=== PATIENT | female | born 1965 | race Caucasian/White ===

== ENCOUNTER 2018-01-21 07:19 | Emergency (ER) | payer OTHER ==
[~2018-01-21] VITALS: Ht 157.5 cm; Wt 65.8 kg
[~2018-01-21 07:19] MED LIST: ATIVAN 0.5MG T0.5 MG PO; PRILOSEC20 MG PO; TRAMADOL50 MG PO; ZOFRAN 4 MG TABL4 MG PO
--- NOTE | 2018-01-21 10:45 | RADIOLOGY REPORT ---
EXAMINATION: XR PORTABLE CHEST CLINICAL INFORMATION: Chest pain and shortness of breath. Presumptive diagnosis of pneumonia and CHF. COMPARISON: Chest x-ray dated 03/18/2011. CT scan of the abdomen and pelvis dated 03/07/2014. TECHNIQUE: Portable AP semierect view of the chest was obtained. FINDINGS: The cardiomediastinal silhouette is within normal limits in size. Lungs bilaterally are symmetrically expanded and clear. No focal consolidation, effusion or pneumothorax is seen. Bony structures are unremarkable. IMPRESSION: No acute cardiopulmonary process seen.
[2018-01-21 11:02] LABS: ABSOLUTE BASOPHIL COUNT 0 /CUMM (0.0-0.2); ABSOLUTE EOSINOPHIL COUNT 0.1 /CUMM (0.0-0.7); ABSOLUTE GRANULOCYTE CT 4.3 /CUMM (1.4-6.5); ABSOLUTE LYMPH COUNT 1.6 /CUMM (1.2-3.4); ABSOLUTE MONOCYTE COUNT 0.3 /CUMM (0.10-0.60); BASOPHIL % 0.7 % (0.0-2.0); EOSINOPHIL % 1.4 % (0-5); GRANULOCYTE % 67.8 % (42.2-75.2); HEMATOCRIT 46.2 % (37-47); MEAN CORPUSCULAR HGB 30.8 PG (27.0-31.0); MEAN CORPUSCULAR HGB CONC 33.6 G/DL (33.0-37.0); MEAN CORPUSCULAR VOLUME 91.7 FL (81.0-99.0); MEAN PLATELET VOLUME 9.1 FL (7.4-10.4); PLATELET COUNT 205 /CUMM (130-400); RBC DISTRIBUTION WIDTH 13.8 % (11.5-14.5); RED BLOOD CELL CT 5.03 /CUMM (4.20-5.40); WHITE BLOOD CELL COUNT 6.3 /CUMM (4.8-10.8)
--- NOTE | 2018-01-21 11:27 | ED GENERAL ADULT ---
History of Present Illness General Chief Complaint: General Adult Stated Complaint: ANXIETY Source: patient Exam Limitations: no limitations Vital Signs & Intake/Output Vital Signs & Intake/Output Vital Signs Date Time Temp Pulse Resp B/P B/P Pulse O2 O2 Flow FiO2 Mean Ox Delivery Rate 01/21 1530 98.4 71 18 126/71 98 Room Air 01/21 1155 98.2 70 18 122/70 99 Room Air 01/21 1045 98.2 88 18 138/74 98 01/21 0900 88 16 148/88 98 01/21 0726 98.0 99 18 165/126 99 Room Air Allergies Coded Allergies: NO KNOWN ALLERGIES (03/18/11) Reconcile Medications Lorazepam (Ativan) 0.5 MG TABLET 1 TAB PO BIDP PRN anxiety Triage Note: 52F ENDORSES MANY PSYCHOSOCIAL STRESSORS, CURRENTLY GOING THROUGH A DIVORCE AND HAS HAD A PANIC ATTACK SINCE YESTERDAY, UNIMPROVED WITH XANAX SHE GOT FROM HER MOM THIS MORNING. DENIES SI/HI. Triage Nurses Notes Reviewed? yes Onset: Abrupt Duration: day(s): (2), better, gone now Timing: single episode today Injury Environment: home Severity: moderate, severe Severity Numbers: 6 No Modifying Factors: none LMP (ages 10-50): unknown : No Patient currently breastfeeds: No HPI: 52-year-old female with no past medical history presents for evaluation of anxiety. Patient states that she is going through a lot of stressors at home including a divorce. She states that yesterday she developed extreme anxiety nausea vomiting shortness of breath palpitations and chest pain. She states that her symptoms progressed through the night and became worse this morning. Her mom had Xanax at home which she took a single dose of. The time she got here she is now beginning to feel better. She states she still has some pressure in her chest but it is much improved. No shortness of breath no more nausea sweats chills or vomiting. She has no significant cardiac history she does not drink smoke or use any drugs. No recent surgery recent trauma no lower extremity edema or hemoptysis. Past History Travel History Traveled to [place] past 21 day No Medical History Any Pertinent Medical History? see below for history Neurological: NONE EENT: NONE Cardiovascular: NONE Respiratory: NONE Gastrointestinal: NONE Hepatic: NONE Renal: NONE Musculoskeletal: NONE Psychiatric: NONE Endocrine: NONE Blood Disorders: NONE Cancer(s): NONE Surgical History Surgical History: non-contributory Psychosocial History What is your primary language Montenegrin Tobacco Use: Current Not Daily ETOH Use: occasional use Illicit Drug Use: denies illicit drug use Family History Hx Contributory? No Review of Systems Review of Systems Constitutional: Reports: no symptoms. EENTM: Reports: no symptoms. Respiratory: Reports: see HPI, short of breath. Cardiovascular: Reports: see HPI, chest pain. GI: Denies: nausea, vomiting. Genitourinary: Reports: no symptoms. Musculoskeletal: Reports: no symptoms. Skin: Reports: no symptoms. Neurological/Psychological: Reports: see HPI, anxiety. Hematologic/Endocrine: Reports: no symptoms. Immunologic/Allergic: Reports: no symptoms. All Other Systems: Reviewed and Negative Physical Exam Physical Exam General Appearance: well developed/nourished, no apparent distress, alert, awake , anxious, TEARFUL Head: atraumatic, normal appearance Eyes: Bilateral: normal appearance, PERRL, EOMI. Ears, Nose, Throat: normal pharynx, normal ENT inspection, hearing grossly normal Neck: normal inspection, supple, full range of motion Respiratory: normal breath sounds, chest non-tender, no respiratory distress, lungs clear Cardiovascular: regular rate/rhythm, normal peripheral pulses Peripheral Pulses: 2+ radial (R), 2+ radial (L) Gastrointestinal: soft, non-tender Back: normal inspection, normal range of motion Extremities: normal inspection, normal range of motion, no edema Neurologic/Psych: no motor/sensory deficits, awake, alert, oriented x 3, normal gait Skin: intact, normal color, warm/dry Lymphatic: no anterior cervical karlene Core Measures ACS in differential dx? No CVA/TIA Diagnosis: No Sepsis Present: No Sepsis Focused Exam Completed? No Progress Differential Diagnoses I considered the following diagnoses in my evaluation of the patient: [Anxiety, acute coronary syndrome electrolyte abnormality, costochondritis,] Plan of Care: Orders Procedure Date/time Status Regular Diet 01/21 L Active TROPONIN LEVEL 01/21 1400 Complete EKG 01/21 1400 Active URINE DRUG SCREEN FOR ER ONLY 01/22 936 Complete URINALYSIS 01/22 936 Complete TROPONIN LEVEL 01/22 936 Complete ETHANOL 01/22 936 Complete COMPREHENSIVE METABOLIC PANEL 01/22 936 Complete CBC WITHOUT DIFFERENTIAL 01/22 936 Complete EKG 01/22 936 Active ED CRISIS PSYCH CONSULT 08/01 0936 Active Laboratory Tests 01/21/18 1513: Troponin I < 0.01 01/21/18 1048: Serum Alcohol < 10.0 01/21/18 1048: Anion Gap 15, Estimated GFR > 60, BUN/Creatinine Ratio 20.0, Glucose 92, Calcium 10.0, Total Bilirubin 0.8, AST 22, ALT 32, Alkaline Phosphatase 67, Troponin I < 0.01, Total Protein 8.1, Albumin 4.8, Globulin 3.3, Albumin/Globulin Ratio 1.5, CBC w Diff NO MAN DIFF REQ, RBC 5.03, MCV 91.7, MCH 30.8, MCHC 33.6, RDW 13.8, MPV 9.1, Gran % 67.8, Lymphocytes % 25.5, Monocytes % 4.6, Eosinophils % 1.4, Basophils % 0.7, Absolute Granulocytes 4.3, Absolute Lymphocytes 1.6, Absolute Monocytes 0.3, Absolute Eosinophils 0.1, Absolute Basophils 0, Urine Opiates Screen < 100, Methadone Screen < 40, Barbiturate Screen < 60, Ur Phencyclidine Scrn < 6.00, Amphetamines Screen < 100, U Benzodiazepines Scrn 120, Urine Cocaine Screen < 50, Urine Cannabis Screen > 80.00 H, Urine Color YEL, Urine Clarity HAZY H, Urine pH 6.0, Ur Specific [place] 1.025, Urine Protein NEG, Urine Ketones 15 H, Urine Nitrite NEG, Urine Bilirubin NEG, Urine Urobilinogen 0.2, Ur Leukocyte Esterase NEG, Ur Microscopic SEDIMENT EXAMINED, Urine RBC 1-3, Urine WBC 3-5 H, Ur Epithelial Cells MOD H, Urine Bacteria MANY H, Urine Mucus MOD H, Urine Hemoglobin NEG, Urine Glucose NEG Patient is here for evaluation of extreme anxiety that caused chest pain shortness of breath and palpitations. She reports that she took her mom's Xanax which helped her symptoms significantly. She states that her pain is improving and is almost gone now. She hasn't been able to calm herself down after Xanax. She denies any suicidal homicidal ideation. No alcohol or drug use. Labs EKG chest x-ray ordered patient will also see crisis. Blood work is unremarkable. EKG DOES SHOW SOME NONSPECIFIC T WAVE ABN IN THE ANT LEADS BUT THEY AREA SIMILAR TO PREVIOUS. A repeat EKG troponin be obtained on reevaluation patient now has no chest pain or shortness of breath. Patient also seen by crisis. Patient was cleared by crisis for discharge. She'll be given a prescription for Ativan to use as needed. She has an appointment with a primary care doctor and a psychiatrist for Friday and Friday. Advised her to monitor her symptoms closely return with any concerns repeat EKG troponin are negative and unchanged. Diagnostic Imaging: Viewed by Me: Radiology Read. Discussed w/RAD: Radiology Read. CXR Impression: PATIENT: RAÚL STROUD I PRESENT AGE: 52 PATIENT ACCOUNT NO: [id number] : 66 LOCATION: [facility] ORDERING PHYSICIAN: Geovany DODSON SERVICE DATE: 01/21/18 EXAM TYPE: RAD - XRY-PORTABLE CHEST XRAY EXAMINATION: XR PORTABLE CHEST CLINICAL INFORMATION: Chest pain and shortness of breath. Presumptive diagnosis of pneumonia and CHF. COMPARISON: Chest x-ray dated 03/18/2011. CT scan of the abdomen and pelvis dated 2013. TECHNIQUE: Portable AP semierect view of the chest was obtained. FINDINGS: The cardiomediastinal silhouette is within normal limits in size. Lungs bilaterally are symmetrically expanded and clear. No focal consolidation, effusion or pneumothorax is seen. Bony structures are unremarkable. IMPRESSION: No acute cardiopulmonary process seen. DICTATED BY: Airam HEARN,Ness Suarez DATE/ TIME DICTATED:01/21/181040 PROSTHODONTIST/OWNER:KALANI DATE/TIME TRANSCRIBED: 01/21/181040 CONFIDENTIAL, DO NOT COPY WITHOUT APPROPRIATE AUTHORIZATION. < Electronically signed in Other Vendor System> Initial ED EKG: normal sinus rhythm, aNTERIOR BORDERLINE t-WAVE ABNORMALITIES Prior EKG: unchanged Repeat EKG: unchanged Departure Departure Disposition: HOME OR SELF CARE Condition: Stable Clinical Impression Primary Impression: Anxiety Referrals: Patient Has No Primary Care Dr (PCP/Family) Additional Instructions: Follow-up with primary care doctor and psychiatrist as scheduled. Ativan as needed for anxiety. Monitor symptoms return with any concerns. Departure Forms: Customer Survey General Discharge Information Prescriptions: Current Visit Scripts Lorazepam (Ativan) 1 TAB PO BIDP PRN anxiety #10 TAB Critical Care Note Critical Care Note Critical Care Time: non-applicable
[2018-01-21 15:30] VITALS: BP 126/71
--- NOTE | 2018-01-21 16:17 | ED PSYCH CRISIS CONSULTATION ---
Crisis Consult Basic Assessment Date of Consult: 01/21/18 Responsible Person/Accompanied By: self/sisters Lucy and Nisha Insurance Authorization: Insurance #1: Insurance name: TENISHA JACKSON Phone number: Policy number: [id number] Group number: [id number] Authorization number: ED Provider: Patient's ED Provider: Geovany Baez Primary Care Physician: Patient's PCP: Patient Has No Primary Care Dr PCP's Phone Number: Current Psychiatrist: none Chief Complaint: General Adult Patient's Quote: I have lots of stress-going through a bad divorce Present Illness: Pt is a 52 yo female presenting to [facility] ED this morning complaing of anxiety and having a panic anxiety. Pt reports experiencing life stressors including divorce, wage garnishment and vehicle problems. Pt works as a dental insurance claims assistant and lives with her 23 yo son. Pt reports speration from who has incurred significant debt due to substance use and gambling and she was notified by her boss on Friday that her pay carter be garnished to pay for delinquent taxes. 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 Pt denies psychiatric tx hx. Pt reports brief episode of SI in her 30s and was briefly prescribed Effexor by her primary. Pt denies current SI/HI/AH/VH. Pt denies access to guns. Pt reports a glass of wine or two after work and occasional marijuana use to help relax and sleep. Pt presents as sad but otherwise calm, cooperative and OX3. Pt reports interest in counseling support and medication to help manage anxiety. Case reviewed with Dr Leal. Recommendation for outpatient tx. Pt in sisters in agreement with plan. Pt scheduled for [facility] appt 01/23 at 8:30am. Pt also scheduled with Milena RUIZ for FridayFeb 09. Pt will also be discharged with 10 ativan tabs 0.5 mg to be used as needed. Patient's Address: [address] [place] [address] Other Phone Number: Who Do You Live With? Son (age 23) Family/Informants Interviewed: collateral provided by pt sisters Lucy and Nisha [phone]. They both decribed pt current difficulties/life stressors. They deny concerns regarding pt safety. They support plan for pt to be connected to putpatient provider and a PCP. Allergies - Coded Allergies: NO KNOWN ALLERGIES (03/18/11) Current Medications - Scheduled PRN Medications Lorazepam (Ativan) 0.5 MG TABLET 1 TAB PO BIDP PRN anxiety #10 TAB Prescribed by Geovany Baez on 01/21/18 Laboratory Results: Laboratory Tests 01/21/18 1513: Troponin I < 0.01 01/21/18 1048: Serum Alcohol < 10.0 01/21/18 1048: Anion Gap 15, Estimated GFR > 60, BUN/Creatinine Ratio 20.0, Glucose 92, Calcium 10.0, Total Bilirubin 0.8, AST 22, ALT 32, Alkaline Phosphatase 67, Troponin I < 0.01, Total Protein 8.1, Albumin 4.8, Globulin 3.3, Albumin/Globulin Ratio 1.5, CBC w Diff NO MAN DIFF REQ, RBC 5.03, MCV 91.7, MCH 30.8, MCHC 33.6, RDW 13.8, MPV 9.1, Gran % 67.8, Lymphocytes % 25.5, Monocytes % 4.6, Eosinophils % 1.4, Basophils % 0.7, Absolute Granulocytes 4.3, Absolute Lymphocytes 1.6, Absolute Monocytes 0.3, Absolute Eosinophils 0.1, Absolute Basophils 0, Urine Opiates Screen < 100, Methadone Screen < 40, Barbiturate Screen < 60, Ur Phencyclidine Scrn < 6.00, Amphetamines Screen < 100, U Benzodiazepines Scrn 120, Urine Cocaine Screen < 50, Urine Cannabis Screen > 80.00 H, Urine Color YEL, Urine Clarity HAZY H, Urine pH 6.0, Ur Specific [place] 1.025, Urine Protein NEG, Urine Ketones 15 H, Urine Nitrite NEG, Urine Bilirubin NEG, Urine Urobilinogen 0.2, Ur Leukocyte Esterase NEG, Ur Microscopic SEDIMENT EXAMINED, Urine RBC 1-3, Urine WBC 3-5 H, Ur Epithelial Cells MOD H, Urine Bacteria MANY H, Urine Mucus MOD H, Urine Hemoglobin NEG, Urine Glucose NEG Past History Past Medical History Neurological: NONE EENT: NONE Cardiovascular: NONE Respiratory: NONE Gastrointestinal: NONE Hepatic: NONE Renal: NONE Musculoskeletal: NONE Psychiatric: NONE Endocrine: NONE Blood Disorders: NONE Cancer(s): NONE 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; motivated for help Psychiatric Treatment History Psych Treatment Psychiatric Treatment No Inpatient Treatment No Outpatient Treatment No Substance Use/Abuse History Drug Use/Abuse 1 Substances Used/Abused Yes Substance Used/Abused Marijuana Last Used last week How often occasional Drug Use/Abuse 2 Substances Used/Abused Yes Substance Used/Abused Alcohol Last Used friday How much used/taken 1-2 glasses of wine How often after work Substance Abuse Treatment Substance Abuse Treatment Past Substance Abuse [place] No Comments: pt reports marijuana helps with getting to sleep Current Mental Status Mental Status Orientation: Person, Place, Situation Affect: Anxious, Sad Speech: WNL Neuro-vegetative: Concentration Poor, Sleep Disturbance Appearance Appearance- Dress/Hygiene: work scrubs; appropriately groomed; arm tattoos; cooperative; congruent affect Behaviors Thought Process: WNL Thought Content: WNL Memory: WNL Insight: WNL SI/HI Risk Assessment Past Suicidal Ideation/Attempts Yes (20yrs ago SI) Current Suicidal Ideation/Att No Past Homicidal Ideation/Att: No Current Homicidal Ideation/Attempts No Degree of Intent: None Risk Factors: high anxiety/distress Lethality Ratin (mild) PTSD Checklist PTSD Done? patient declined ED Management Sitter: Yes Restraints: No DSM5/PS Stressors/Medical Prob Diagnosis' (DSM 5, Stressors, Medical): Panic D/O F41.0 Unspecified Anxiety F41.9 financial Current GAF: 45 Comments: pt experiencing increased stress; panic attacks and diificulty with sleep. Pt motivated for therapy and medication support Departure Disposition Psych Medical Clearance Date: 01/21/18 Medically Cleared at: 1530 Time Started: 1530 Time Ended: 1615 Psychiatrist Consulted: Alonzo Leal MD Date Disposition Established: 01/21/18 Time Disposition Established: 1630 Plan for Disposition - Modality: Outpatient Facility: [facility] Follow-up Appt Date: 01/23/18 Follow-Up Appt Time: 829 Contact: Abbey Robin Rationale for Disposition: counseling and medication assessment for anxiety/panic attacks Additional Instructions: pt also scheduled for a [facility] appt FridayFeb 09 at [place] [facility] Referrals Patient Has No Primary Care Dr (PCP/Family)
[2018-01-21] MEDS ORDERED: ATIVAN0.5 M1 PO (16:49)
== END 2018-01-21 17:24 ==
LOC: ERH 07:19
PROVIDERS: Physician Assistant Medical
DX: F41.9 Anxiety disorder, unspecified (principal); R11.2 Nausea with vomiting, unspecified; R06.02 Shortness of breath; R07.89 Other chest pain; Z72.89 Other problems related to lifestyle
CPT/HCPCS: 71045; 80307; 81001; 93005; 93010; G0480